=== PATIENT | female | born 1985 | race Caucasian/White ===

== ENCOUNTER 2019-08-10 13:18 | Emergency (ER) | payer OTHER ==
[~2019-08-10] VITALS: Ht 157.5 cm; Wt 62.6 kg
[2019-08-10 13:22] VITALS: BP 124/75; Ht 157.5 cm; Wt 62.6 kg
== END 2019-08-10 13:54 | disposition home or self-care (01) ==
LOC: ED 13:18
DX: J06.9 Acute upper respiratory infection, unspecified (principal)